=== PATIENT | female | born 1950 | race Caucasian/White ===

== ENCOUNTER 2016-08-28 11:49 | Emergency (ER) | payer OTHER ==
[~2016-08-28] VITALS: Ht 165.1 cm; Wt 100.0 kg
[~2016-08-28 11:49] MED LIST: ADVAIR 250/501 DISK IH; NEXIUM 40 MG VI40 MG PO; SINGULAIR10 MG PO; ZOLOFT25 MG PO
[2016-08-28 13:05] LABS: HEMATOCRIT 45.1 % (36.0-46.0); MCH 28.4 PG (29.0-34.0); MCHC 32.6 G/DL (30.0-36.0); MCV 87.1 FL (83-99); MEAN PLAT.VOLUME 8.6 uM^3 (9.5-12.4); PLATELET COUNT 319 K/uL (156-360); RBC DIS.WIDTH-CV 12.7 % (11.8-14.6); RBC DIS.WIDTH-SD 40.3 % (39-53); RED BLOOD COUNT 5.18 M/uL (3.80-5.20)
[2016-08-28 13:20] LABS: CHLORIDE 106 mEq/L (99-109); POTASSIUM 4.4 mEq/L (3.7-5.4); SODIUM 141 mEq/L (136-147)
[2016-08-28 13:22] LABS: GLUCOSE 105 mg/dL (70-99)
[2016-08-28 13:23] LABS: ANION GAP 10 MEQ/L (2-14)
[2016-08-28 13:26] LABS: GFR ESTIMATE (CALCULATED) > 59 mL/min/
[2016-08-28 13:27] LABS: UREA NITROGEN (BUN) 17 mg/dL (9-23)
[2016-08-28 13:27] LABS: TROP-I INTERPRETATION NEGATIVE; TROPONIN-I < 0.01 ng/mL (0.0-0.30)
[2016-08-28 14:04] LABS: ADD MIUA? YES; BILIRUBIN NEGATIVE; BLOOD SMALL; COLOR AMBER ((YELLOW)); GLUCOSE (STRIP) NEGATIVE; KETONES NEGATIVE; LEUKOCYTES SMALL; NITRITE POSITIVE; PROTEIN (STRIP) NEGATIVE; SPECIFIC GRAVITY 1.012 (1.000-1.030); UROBILINOGEN 0.2 MG/DL (0.2-1.0)
[2016-08-28 14:09] LABS: BACTERIA 1+ /HPF; EPITHELIAL CELLS RARE /HPF; MUCUS TRACE /LPF; UCUL ADDED? NO
[2016-08-28 14:31] LABS: INFLUENZA A VIRAL ANTIGEN NEGATIVE; INFLUENZA B VIRAL ANTIGEN NEGATIVE
[2016-08-28] MEDS ORDERED: KEFLEX500 MG PO (14:48)
[2016-08-28 15:27] VITALS: BP 164/98
== END 2016-08-28 15:28 | disposition home or self-care (01) ==
LOC: EME 11:49
PROVIDERS: Nurse Practitioner Family
DX: N39.0 Urinary tract infection, site not specified (principal); J45.909 Unspecified asthma, uncomplicated; M79.7 Fibromyalgia; K21.9 Gastro-esophageal reflux disease without esophagitis
CPT/HCPCS: 71020; 80048; 81003; 84484; 85027; 87502; 87651 90; 93005; 99281; 99284

== ENCOUNTER 2016-11-23 14:41 | Emergency (ER) | payer OTHER ==
[~2016-11-23] VITALS: Ht 167.6 cm; Wt 97.6 kg
[~2016-11-23 14:41] MED LIST changes: +KEFLEX500 MG PO
[2016-11-23 16:03] LABS: ADD MIUA? YES; BILIRUBIN NEGATIVE; BLOOD NEGATIVE; COLOR AMBER ((YELLOW)); GLUCOSE (STRIP) 50; KETONES NEGATIVE; LEUKOCYTES TRACE; NITRITE POSITIVE; PROTEIN (STRIP) 30; UROBILINOGEN 0.2 MG/DL (0.2-1.0)
[2016-11-23 16:08] LABS: EOSINOPHIL (%) 0.9 % (0-5); EOSINOPHIL COUNT 0.1 K/uL (0-0.3); HEMATOCRIT 38.5 % (36.0-46.0); IMMATURE GRANULOCYTE (%) 0.6 % (0.0-0.7); IMMATURE GRANULOCYTE COUNT 0.1 K/uL; INSTRUMENT ABS NEUTROPHIL CT 6.7 K/uL; LYMPHOCYTE COUNT 2.2 K/uL (1.0-2.8); MCH 28.4 PG (29.0-34.0); MCHC 32.2 G/DL (30.0-36.0); MCV 88.3 FL (83-99); MEAN PLAT.VOLUME 8.6 uM^3 (9.5-12.4); MONOCYTE (%) 12.8 % (3-12); MONOCYTE COUNT 1.3 K/uL (0-0.8); NEUTROPHIL (%) 64.5 % (45-76); NEUTROPHIL COUNT 6.7 K/uL (1.8-6.4); PLATELET COUNT 242 K/uL (156-360); RBC DIS.WIDTH-CV 13.5 % (11.8-14.6); RED BLOOD COUNT 4.36 M/uL (3.80-5.20); WHITE BLOOD COUNT 10.4 K/uL (4.1-10.2)
[2016-11-23 16:10] LABS: BACTERIA 2+ /HPF; EPITHELIAL CELLS RARE /HPF; MUCUS 4+ /LPF; RED BLOOD CELLS 0-5 /HPF (0-5); WHITE BLOOD CELLS 15-20 /HPF (0-5)
[2016-11-23 16:16] LABS: CHLORIDE 103 mEq/L (99-109); POTASSIUM 4.4 mEq/L (3.7-5.4); SODIUM 137 mEq/L (136-147)
[2016-11-23 16:18] LABS: GLUCOSE 98 mg/dL (70-99)
[2016-11-23 16:20] LABS: ANION GAP 8 MEQ/L (2-14)
[2016-11-23 16:22] LABS: GFR ESTIMATE (CALCULATED) > 59 mL/min/
[2016-11-23 16:23] LABS: UREA NITROGEN (BUN) 16 mg/dL (9-23)
[2016-11-23] MEDS ORDERED: LEVAQUIN750 MG PO (19:14)
[2016-11-23 19:55] VITALS: BP 173/77
== END 2016-11-23 19:57 | disposition home or self-care (01) ==
LOC: EME 14:41
PROVIDERS: Physician Assistant
DX: N39.0 Urinary tract infection, site not specified (principal); J18.9 Pneumonia, unspecified organism; M79.7 Fibromyalgia; K21.9 Gastro-esophageal reflux disease without esophagitis; J45.909 Unspecified asthma, uncomplicated; Z87.440 Personal history of urinary (tract) infections
CPT/HCPCS: 71020; 74176; 80048; 81003; 85025; 87077; 87086; 87186; 99281; 99285; J7030

== ENCOUNTER → 2017-03-24 | Outpatient (CLI) | payer OTHER ==
[~2017-03-24] MED LIST changes: +LEVAQUIN750 MG PO
== END | disposition home or self-care (01) ==
LOC: NUC 09:25
DX: N13.30 Unspecified hydronephrosis (principal); M47.894 Other spondylosis, thoracic region; M19.91 Primary osteoarthritis, unspecified site; Z98.1 Arthrodesis status
CPT/HCPCS: 78315; A9503

== ENCOUNTER → 2017-07-07 | Outpatient (CLI) | payer OTHER ==
[~2017-07-07] VITALS: Ht 167.6 cm; Wt 86.2 kg
[~2017-07-07] MED LIST changes: +ASPIRIN81 M2 PO; +CARDIZEM90 MG PO; +GABAPENTIN600 MG PO; +NEXIUM 24HR20 M2 PO; -NEXIUM 40 MG VI40 MG PO; +OMEGA-3 FISH O1 EAC3 PO; +OMNIPRED10 ML BOTH EYES; +PREDNISONE20 MG PO; +THERALITH XR T1 EACH PO; +ULTRAM50 MG PO; +ZANAFLEX4 M1 PO
[2017-07-07 14:31] LABS: BASOPHIL (%) 0.6 % (0-1); BASOPHIL COUNT 0.1 K/uL (0-0.1); EOSINOPHIL COUNT 0.1 K/uL (0-0.3); HEMATOCRIT 44.4 % (36.0-46.0); HEMOGLOBIN 13.8 G/DL (11.9-15.5); IMMATURE GRANULOCYTE (%) 0.7 % (0.0-0.7); LYMPHOCYTE (%) 26.6 % (15-42); LYMPHOCYTE COUNT 3.3 K/uL (1.0-2.8); MCHC 31.1 G/DL (30.0-36.0); MCV 90.1 FL (83-99); MONOCYTE (%) 7.8 % (3-12); NEUTROPHIL (%) 63.3 % (45-76); PLATELET COUNT 339 K/uL (156-360); RBC DIS.WIDTH-CV 12.5 % (11.8-14.6); RBC DIS.WIDTH-SD 41.6 % (39-53); RED BLOOD COUNT 4.93 M/uL (3.80-5.20); WHITE BLOOD COUNT 12.6 K/uL (4.1-10.2)
[2017-07-07 14:44] LABS: PTT 25.8 SEC (25-37)
== END | disposition home or self-care (01) ==
LOC: AMB 13:51
PROVIDERS: Internal Medicine Pulmonary Disease
DX: R59.0 Localized enlarged lymph nodes (principal); R91.8 Other nonspecific abnormal finding of lung field; D86.9 Sarcoidosis, unspecified
CPT/HCPCS: 85025; 85610; 85730; 88305; 93005; J0461; J2250; J2550